=== PATIENT | male | born 1935 | race Caucasian/White ===

== ENCOUNTER 2020-02-27 10:13 | Inpatient (IN) | payer MEDICARE, BC ==
[2020-02-27] MEDS ORDERED: ACETAMINOPHEN TAB 325 MG TAB PO STA (10:38)
[2020-02-27 11:03] LABS: Basophils % (A) 0 %; Eosinophils # (A) 0.1 k/uL (0-0.7); Eosinophils % (A) 2 %; HCT 38.1 % (39.0-53.0); Lymphocytes # (A) 0.8 k/uL (1.0-4.8); Lymphocytes % (A) 10 %; MCH 29.7 pg (25.0-35.0); MCHC 31.4 g/dL (31.0-37.0); MCV 94.6 fL (80.0-100.0); Mean Platelet Volume 8.1; Monocytes # (A) 0.7 k/uL (0-1.0); Monocytes % (A) 8 %; Neutrophils # (A) 6.6 k/uL (1.3-7.7); Neutrophils % (A) 79 %; Platelet Count 188 k/uL (150-450); RBC 4.03 m/uL (4.30-5.90); WBC 8.3 k/uL (3.8-10.6)
[2020-02-27 11:15] LABS: C Reactive Protein 72.7 mg/L (<10.0); Calcium 8.9 mg/dL (8.4-10.2); Potassium 4.5 mmol/L (3.5-5.1); Total Bilirubin 0.9 mg/dL (0.2-1.3); Total Protein 7.2 g/dL (6.3-8.2)
--- NOTE | 2020-02-27 11:18 | XR ---
Left foot HISTORY: Foot swelling 3 views the left foot There are vascular calcifications present. Soft tissue swelling is noted. Degenerative changes presen t at the intertarsal and tibiotalar joints. There is a plantar calcaneal spur. Bone mineralization is reduced. No fracture or dislocation is evident. Degenerative change present at the first metatarsoph alangeal joint. No periostitis to suggest osteomyelitis. IMPRESSION: Correlate for possible diabetes or peripheral vascular occlusive disease, cellulitis. Ost eoarthritis, plantar calcaneal spur.
[2020-02-27] MEDS ORDERED: SODIUM CHLORIDE 0.9% 500 ML 500 ML IV ONE (11:26)
[2020-02-27] MEDS ORDERED: SODIUM CHLORIDE 0.9% 1,000 ML IV ONE (11:27)
--- NOTE | 2020-02-27 11:37 | US ---
EXAMINATION TYPE: US venous doppler duplex LE LT DATE OF EXAM: 02/27/2020 10:38 AM COMPARISON: NONE CLINICAL HISTORY: history of DVT, left foot swelling. Patient is currently taking blood thinners SIDE PERFORMED: Left TECHNIQUE: The lower extremity deep venous system is examined utilizing real time linear array sonog angelo with graded compression, doppler sonography and color-flow sonography. VESSELS IMAGED: External Iliac Vein (EIV) Common Femoral Vein Deep Femoral Vein Greater Saphenous Vein * Femoral Vein Popliteal Vein Small Saphenous Vein * Proximal Calf Veins (* superficial vessels) Within the femoral vein there are some low level internal echoes, the vein is not entirely compressib le Left Leg: Positive for non-occluding DVT mid femoral vein IMPRESSION: Deep venous thrombosis of questionable acuity
--- NOTE | 2020-02-27 11:44 | ED ---
Extremity Problem HPI <JustoHari - Last Filed: 02/27/20 17:07> - General Source: patient Mode of arrival: ambulatory Limitations: no limitations <Sweta Briseno - Last Filed: 02/27/20 19:16> - General Chief complaint: Extremity Problem,Nontraumatic Stated complaint: leg swelling Time Seen by Provider: 02/27/20 10:24 - History of Present Illness Initial comments: 84-year-old male past history of gout presenting today for chief complaint of left foot and ankle pain and swelling and fevers. Patient states that he has history of gout and a few days ago he noticed pain in his great left toe. Danuta ent states that the pain went away after drinking marquis juice. Patient states that returned it seemed to be in his ankle and foot. Patient noted left foot swelling. Patient's was concerned as patient has had DVTs in the past. Patient is currently on coumadin. Patient denies chest pain or shortness of breath, denies cough or URI symptoms. Denies dysuria, urgency and frequency. Patient states the ankle joint was slightly red, he states although the ankle and foot are painful he is able to range and weight bear. Upon arrival patient pleasant appears nontoxic, but is febrile. (Sweta Briseno) - Related Data Home Medications Medication Instructions Recorded Confirmed Simvastatin [Zocor] 40 mg PO HS 07/26/16 02/27/20 Warfarin [Coumadin] 2.5 mg PO SUTH 07/26/16 02/27/20 Warfarin [Coumadin] 5 mg PO MOTUWEFRSA 07/26/16 02/27/20 Ergocalciferol [Vitamin D2 50,000 unit PO FR 09/14/16 02/27/20 (DRISDOL)] Donepezil [Aricept] 10 mg PO HS 02/27/20 02/27/20 Furosemide [Lasix] 40 mg PO DAILY 02/27/20 02/27/20 Pioglitazone [Actos] 15 mg PO DAILY 02/27/20 02/27/20 Potassium Chloride ER [K-Dur 20] 20 meq PO DAILY 02/27/20 02/27/20 Previous Rx's Medication Instructions Recorded metFORMIN HCL 1,000 mg PO BID #60 tab 09/15/16 Allergies Allergy/AdvReac Type Severity Reaction Status Date / Time Penicillins Allergy Rash/Hives Verified 02/27/20 10:22 Review of Systems ROS Other: All systems not noted in ROS Statement are negative. <Hari Kemp - Last Filed: 02/27/20 17:07> ROS Other: All systems not noted in ROS Statement are negative. <Sweta Briseno - Last Filed: 02/27/20 19:16> ROS Statement: Those systems with pertinent positive or pertinent negative responses have been documented in the HPI. Past Medical History Past Medical History: Coronary Artery Disease (CAD), Deep Vein Thrombosis (DVT), Hearing Disorder / Deafness, Hyperlipidemia, Osteoarthritis (OA) Additional Past Medical History / Comment(s): DVT X3-1989,1992,2012", gout History of Any Multi-Drug Resistant Organisms: None Reported Past Surgical History: Joint Replacement, Orthopedic Surgery Additional Past Surgical History / Comment(s): RT SHOULDER AND LT KNEE REPLACEMENT. RT ROTATOR CUFF REPAIR, COLONOSCOPY Past Anesthesia/Blood Transfusion Reactions: No Reported Reaction Past Psychological History: No Psychological Hx Reported Smoking Status: Former smoker Past Alcohol Use History: None Reported Past Drug Use History: None Reported - Past Family History Father History Unknown: Yes Additional Family Medical History / Comment(s): Lived until 88, was in a foster home. <Sweta Briseno - Last Filed: 02/27/20 19:16> General Exam Limitations: no limitations <Sweta Briseno - Last Filed: 02/27/20 19:16> - General Exam Comments Initial Comments: General: The patient is awake and alert, in no distress Eye: +3 mm pupils are equal, round and reactive to light, extra-ocular movements are intact. No nystagmus. There is normal conjunctiva bilaterally. No signs of icterus. Cardiovascular: There is a regular rate and rhythm. No murmur, rub or gallop is appreciated. Respiratory: Lungs are clear to auscultation, respirations are non-labored, breath sounds are equal. No wheezes, stridor, rales, or rhonchi. Gastrointestinal: Soft, non-distended, non-tender abdomen without masses or organomegaly noted. There is no rebound or guarding present. Musculoskeletal: Light redness of left ankle joint, LE edema > left side in com parison to right, swelling mostly in ankle joint. Great toe pain, no significant swelling. Normal ROM, moderate tenderness. Strength 5/5. Sensation intact. Radial pulses equal bilaterally 2+. Neurological: A&O x 3. CN II-XII intact grossly, There are no obvious motor or sensory deficits. Coordination appears grossly intact. Speech is normal. Skin: Skin is warm and dry and no rashes or lesions are noted. Psychiatric: Cooperative, appropriate mood & affect, normal judgment. (Sweta Briseno) Course Vital Signs 02/27/20 02/27/20 02/27/20 10:14 12:04 13:00 Temperature 100.4 F H Pulse Rate 75 71 71 Respiratory 18 20 20 Rate Blood Pressure 135/83 136/77 O2 Sat by Pulse 97 98 98 Oximetry 02/27/20 02/27/20 02/27/20 14:00 15:26 15:45 Temperature Pulse Rate 73 76 Respiratory 20 18 Rate Blood Pressure 143/87 152/82 O2 Sat by Pulse 98 98 98 Oximetry 02/27/20 17:46 Temperature Pulse Rate 689 H Respiratory 18 Rate Blood Pressure 153/93 O2 Sat by Pulse 96 Oximetry Medical Decision Making - Lab Data Result diagrams: 02/27/20 10:52 02/27/20 10:52 <Hari Kemp - Last Filed: 02/27/20 17:07> - Lab Data Result diagrams: 02/27/20 10:52 02/27/20 10:52 <Sweta Briseno - Last Filed: 02/27/20 19:16> - Medical Decision Making Placement order placed for Dr. Weiss (Hari Kemp) 84-year-old male presents today for chief complaint of left foot and ankle pain swelling fever. Patient's history of gout. Concerning for possible septic joint of the patient was ranging ankle quite well and able to weight-bear x-ray revealed no signs of osteomyelitis. No leukocytosis. Patient blood cultures pending, no other localized symptoms. Patient ankle joint aspirated and evaluated by investigations director orthopedic surgeon Dr. Short who feel this is most likely a gouty exacerbation. US revealed a DVT of uncertain acuity and thus since patient is therapeutic on his coumadin patient was admitted for failed outpatient treatment of DVT. Patient is not tachycardic, denies chest pain or SOB at this time. Patient case accepted by Dr. Sánchez. Dr. Weiss is agreeable to this care plan and admission (Sweta Briseno) - Lab Data Lab Results 02/27/20 02/27/20 02/27/20 Range/Units 10:52 10:52 10:52 WBC 8.3 (3.8-10.6) k/uL RBC 4.03 L (4.30-5.90) m/uL Hgb 12.0 L (13.0-17.5) gm/dL Hct 38.1 L (39.0-53.0) % MCV 94.6 (80.0-100.0) fL MCH 29.7 (25.0-35.0) pg MCHC 31.4 (31.0-37.0) g/dL RDW 14.0 (11.5-15.5) % Plt Count 188 (150-450) k/uL Neutrophils % 79 % Lymphocytes % 10 % Monocytes % 8 % Eosinophils % 2 % Basophils % 0 % Neutrophils # 6.6 (1.3-7.7) k/uL Lymphocytes # 0.8 L (1.0-4.8) k/uL Monocytes # 0.7 (0-1.0) k/uL Eosinophils # 0.1 (0-0.7) k/uL Basophils # 0.0 (0-0.2) k/uL ESR 62 H (0-15) mm/hr PT (9.0-12.0) sec INR (<1.2) APTT (22.0-30.0) sec Sodium 138 (137-145) mmol/L Potassium 4.5 (3.5-5.1) mmol/L Chloride 103 (98-107) mmol/L Carbon Dioxide 25 (22-30) mmol/L Anion Gap 10 mmol/L BUN 25 H (9-20) mg/dL Creatinine 1.45 H (0.66-1.25) mg/dL Est GFR (CKD-EPI)AfAm 50 (>60 ml/min/1.73 sqM) Est GFR (CKD-EPI)NonAf 44 (>60 ml/min/1.73 sqM) Glucose 152 H (74-99) mg/dL Lactic Ac Sepsis Rflx Plasma Lactic Acid Pedro Luis 2.1 H* (0.7-2.0) mmol/L Calcium 8.9 (8.4-10.2) mg/dL Total Bilirubin 0.9 (0.2-1.3) mg/dL AST 23 (17-59) U/L ALT 13 (4-49) U/L Alkaline Phosphatase 33 L (38-126) U/L C-Reactive Protein 72.7 H (<10.0) mg/L Total Protein 7.2 (6.3-8.2) g/dL Albumin 4.0 (3.5-5.0) g/dL Fluid Source Fluid Color Fluid Appearance Fluid RBC /uL Fluid Nucleated Cells /uL Fluid Polynuclear WBCs % Fluid Mononuclear WBCs % 02/27/20 02/27/20 02/27/20 Range/Units 10:52 11:19 13:30 WBC (3.8-10.6) k/uL RBC (4.30-5.90) m/uL Hgb (13.0-17.5) gm/dL Hct (39.0-53.0) % MCV (80.0-100.0) fL MCH (25.0-35.0) pg MCHC (31.0-37.0) g/dL RDW (11.5-15.5) % Plt Count (150-450) k/uL Neutrophils % % Lymphocytes % % Monocytes % % Eosinophils % % Basophils % % Neutrophils # (1.3-7.7) k/uL Lymphocytes # (1.0-4.8) k/uL Monocytes # (0-1.0) k/uL Eosinophils # (0-0.7) k/uL Basophils # (0-0.2) k/uL ESR (0-15) mm/hr PT 29.0 H (9.0-12.0) sec INR 3.0 H (<1.2) APTT 43.6 H (22.0-30.0) sec Sodium (137-145) mmol/L Potassium (3.5-5.1) mmol/L Chloride (98-107) mmol/L Carbon Dioxide (22-30) mmol/L Anion Gap mmol/L BUN (9-20) mg/dL Creatinine (0.66-1.25) mg/dL Est GFR (CKD-EPI)AfAm (>60 ml/min/1.73 sqM) Est GFR (CKD-EPI)NonAf (>60 ml/min/1.73 sqM) Glucose (74-99) mg/dL Lactic Ac Sepsis Rflx Y Plasma Lactic Acid Pedro Luis (0.7-2.0) mmol/L Calcium (8.4-10.2) mg/dL Total Bilirubin (0.2-1.3) mg/dL AST (17-59) U/L ALT (4-49) U/L Alkaline Phosphatase (38-126) U/L C-Reactive Protein (<10.0) mg/L Total Protein (6.3-8.2) g/dL Albumin (3.5-5.0) g/dL Fluid Source Synovial Fluid Color Yellow Fluid Appearance Cloudy Fluid RBC 19792 /uL Fluid Nucleated Cells 7000 /uL Fluid Polynuclear WBCs 71 % Fluid Mononuclear WBCs 29 % 05/25/20 Range/Units 15:48 WBC (3.8-10.6) k/uL RBC (4.30-5.90) m/uL Hgb (13.0-17.5) gm/dL Hct (39.0-53.0) % MCV (80.0-100.0) fL MCH (25.0-35.0) pg MCHC (31.0-37.0) g/dL RDW (11.5-15.5) % Plt Count (150-450) k/uL Neutrophils % % Lymphocytes % % Monocytes % % Eosinophils % % Basophils % % Neutrophils # (1.3-7.7) k/uL Lymphocytes # (1.0-4.8) k/uL Monocytes # (0-1.0) k/uL Eosinophils # (0-0.7) k/uL Basophils # (0-0.2) k/uL ESR (0-15) mm/hr PT (9.0-12.0) sec INR (<1.2) APTT (22.0-30.0) sec Sodium (137-145) mmol/L Potassium (3.5-5.1) mmol/L Chloride (98-107) mmol/L Carbon Dioxide (22-30) mmol/L Anion Gap mmol/L BUN (9-20) mg/dL Creatinine (0.66-1.25) mg/dL Est GFR (CKD-EPI)AfAm (>60 ml/min/1.73 sqM) Est GFR (CKD-EPI)NonAf (>60 ml/min/1.73 sqM) Glucose (74-99) mg/dL Lactic Ac Sepsis Rflx Plasma Lactic Acid Pedro Luis 1.2 (0.7-2.0) mmol/L Calcium (8.4-10.2) mg/dL Total Bilirubin (0.2-1.3) mg/dL AST (17-59) U/L ALT (4-49) U/L Alkaline Phosphatase (38-126) U/L C-Reactive Protein (<10.0) mg/L Total Protein (6.3-8.2) g/dL Albumin (3.5-5.0) g/dL Fluid Source Fluid Color Fluid Appearance Fluid RBC /uL Fluid Nucleated Cells /uL Fluid Polynuclear WBCs % Fluid Mononuclear WBCs % Disposition <Hari Kemp - Last Filed: 02/27/20 17:07> Is patient prescribed a controlled substance at d/c from ED?: No Time of Disposition: 13:42 Decision to Admit Reason: Admit from EC Decision Date: 02/27/20 Decision Time: 13:42 <Sweta Briseno - Last Filed: 02/27/20 19:16> Clinical Impression: Left leg swelling, Left ankle swelling, Fever, DVT (deep venous thrombosis) Disposition: ADMITTED IP TO THIS HOSP Condition: Stable
--- NOTE | 2020-02-27 11:46 | XR ---
Left ankle HISTORY: Swelling, erythema 3 views of the left ankle There is soft tissue swelling present. Ossific densities along the medial malleolus are well-corticat ed and not felt likely to be acute. Soft tissue calcifications at the distal leg may be due to chroni c venous stasis disease, arterial calcifications may be present. Alignment and ankle mortise are main tained, bone mineralization is within normal limits. There is a plantar spur. Joint space loss is pre sent at the tibiotalar joint. IMPRESSION: Correlate for cellulitis, chronic venous stasis disease. Osteoarthritis. Plantar spur..
[2020-02-27] MEDS: SODIUM CHLORIDE 0.9% 1,000 ML IV SCH (11:52)
[2020-02-27] MEDS ORDERED: VANCOMYCIN IV PER PHARMACY 1 EACH MISC MISCELLANE PRN (11:54)
[2020-02-27] MEDS ORDERED: VANCOMYCIN 2,000 MG in SODIUM CHLORIDE 0.9% 500 ML 500 ML IVPB STA (11:59)
[2020-02-27 12:14] LABS: Partial Thromboplastin Time 43.6 sec (22.0-30.0)
[2020-02-27 12:23] LABS: Erythrocyte Sedimentation Rate 62 mm/hr (0-15)
[2020-02-27] MEDS ORDERED: LIDOCAINE 1% INJ 10MG/ML (20 ML MDV) SQ ONE (12:38)
[2020-02-27] MEDS ORDERED: HEPARIN SODIUM,PORCINE 5,000 UNIT/ML 1 ML VIAL IV PRN (13:40)
[2020-02-27] MEDS ORDERED: HEPARIN SODIUM,PORCINE 5,000 UNIT/ML 1 ML VIAL IV ONE (13:40)
[2020-02-27] MEDS ORDERED: NALOXONE 0.4 MG/ML 1 ML VIAL IV PRN (13:40)
[2020-02-27] MEDS ORDERED: predniSONE 50 MG TAB PO STA (13:42)
[2020-02-27] MEDS ORDERED: HEPARIN SOD,PORK IN 0.45% NACL 25,000 UNIT in 0.45% NACL 1 250ML.BAG IV SCH (13:45)
--- NOTE | 2020-02-27 14:03 | P.CNOR ---
History of Present Illness - [facility] Consult date: 02/27/20 History of present illness: The patient is an 84-year-old male with multiple medical problems who presents to the ER with swelling and pain throughout his left ankle and foot. He has a history of gout and states that initially his left big toe felt like prior flareups of gout, but then he had swelling and pain that migrated proximally into his ankle and calf. At the time of my evaluation the patient denies feeling systemically sick and is complaining of isolated pain in his left ankle. He states that it hurts, but he would be able to walk. He has no other complaints at this time. Past Medical History Past Medical History: Coronary Artery Disease (CAD), Deep Vein Thrombosis (DVT), Hearing Disorder / Deafness, Hyperlipidemia, Osteoarthritis (OA) Additional Past Medical History / Comment(s): DVT X3-1989,1992,2012", gout History of Any Multi-Drug Resistant Organisms: None Reported Past Surgical History: Joint Replacement, Orthopedic Surgery Additional Past Surgical History / Comment(s): RT SHOULDER AND LT KNEE REPLACEMENT. RT ROTATOR CUFF REPAIR, COLONOSCOPY Past Anesthesia/Blood Transfusion Reactions: No Reported Reaction Past Psychological History: No Psychological Hx Reported Smoking Status: Former smoker Past Alcohol Use History: None Reported Past Drug Use History: None Reported - Past Family History Father History Unknown: Yes Additional Family Medical History / Comment(s): Lived until 89, was in a foster home. Medications and Allergies Home Medications Medication Instructions Recorded Confirmed Type Furosemide [Lasix] 20 mg PO DAILY 07/26/16 09/14/16 History Simvastatin [Zocor] 40 mg PO HS 07/26/16 09/14/16 History Warfarin [Coumadin] 2.5 mg PO SUTUTHSA 07/26/16 09/14/16 History Warfarin [Coumadin] 5 mg PO MOWEFR 07/26/16 09/14/16 History Ergocalciferol [Vitamin D2 50,000 unit PO Q14D 09/14/16 09/14/16 History (DRISDOL)] Potassium 99 mg PO DAILY 09/14/16 09/14/16 History Pioglitazone [Actos] 30 mg PO DAILY #30 tab 09/15/16 Rx metFORMIN HCL 1,000 mg PO BID #60 tab 09/15/16 Rx Allergies Allergy/AdvReac Type Severity Reaction Status Date / Time Penicillins Allergy Rash/Hives Verified 02/27/20 10:22 Physical Examination On exam the patient is resting comfortably on the ER [place]. He is alert and easily able to answer questions. A focused exam of the left leg was conducted. On inspection there is diffuse swelling throughout the calf, ankle, and foot. There is mild erythema but no cesia warmth. There are no open wounds or areas of subcutaneous crepitance. He has a moderate ankle effusion. He has pain with passive range of motion of the ankle. Results - Labs Labs: Abnormal Lab Results - Last 24 Hours (Table) 02/27/20 02/27/20 02/27/20 Range/Units 10:52 10:52 10:52 RBC 4.03 L (4.30-5.90) m/uL Hgb 12.0 L (13.0-17.5) gm/dL Hct 38.1 L (39.0-53.0) % Lymphocytes # 0.8 L (1.0-4.8) k/uL ESR 62 H (0-15) mm/hr PT (9.0-12.0) sec INR (<1.2) APTT (22.0-30.0) sec BUN 25 H (9-20) mg/dL Creatinine 1.45 H (0.66-1.25) mg/dL Glucose 152 H (74-99) mg/dL Plasma Lactic Acid Pedro Luis 2.1 H* (0.7-2.0) mmol/L Alkaline Phosphatase 33 L (38-126) U/L C-Reactive Protein 72.7 H (<10.0) mg/L 02/27/20 Range/Units 10:52 RBC (4.30-5.90) m/uL Hgb (13.0-17.5) gm/dL Hct (39.0-53.0) % Lymphocytes # (1.0-4.8) k/uL ESR (0-15) mm/hr PT 29.0 H (9.0-12.0) sec INR 3.0 H (<1.2) APTT 43.6 H (22.0-30.0) sec BUN (9-20) mg/dL Creatinine (0.66-1.25) mg/dL Glucose (74-99) mg/dL Plasma Lactic Acid Pedro Luis (0.7-2.0) mmol/L Alkaline Phosphatase (38-126) U/L C-Reactive Protein (<10.0) mg/L H & H 02/27/20 Range/Units 10:52 Hgb 12.0 L (13.0-17.5) gm/dL Hct 38.1 L (39.0-53.0) % Coagulation 02/27/20 Range/Units 10:52 INR 3.0 H (<1.2) Result Diagrams: 02/27/20 10:52 02/27/20 10:52 Assessment and Plan (1) Left ankle swelling Current Visit: Yes Status: Acute Code(s): M25.472 - EFFUSION, LEFT ANKLE SNOMED Code(s): 629332578 Plan: The patient has relatively acute onset left ankle pain and swelling. His exam is more consistent with crystalline arthropathy then septic arthritis. I aspirated the left ankle and was able to withdraw 3 mL's of clear, blood-tinged fluid. There was no cesia purulence. The fluid was sent for crystals, cell count, Gram stain, and culture. Final disposition was deferred to ER. The patient is going to be admitted to internal medicine. We will follow his cultures peripherally and if his condition worsens are happy to reevaluate his left ankle. Time with Patient: Greater than 30
[2020-02-27 14:52] LABS: Color,BF Yellow; Nucleated Cells, Body Fluid 7000 /uL; RBC, Body Fluid 19500 /uL
[2020-02-27 14:53] LABS: Appearance,BF Cloudy
[2020-02-27 14:55] LABS: Mononuclear WBC,Body Fluid 29 %; Polynuclear WBC,Body Fluid 71 %; Total Cells Counted,Body Fluid 100
[2020-02-27] MEDS ORDERED: HYDROmorphone 0.5 MG/0.5 ML SYRINGE IVP PRN (18:21)
[2020-02-27] MEDS ORDERED: ALPRAZolam 0.25 MG TAB PO PRN (18:21)
[2020-02-27] MEDS ORDERED: HYDROcodone/APAP 5-325MG 1 EACH TAB PO PRN (18:21)
--- NOTE | 2020-02-27 20:57 | HP ---
HISTORY AND PHYSICAL DATE OF SERVICE: 02/27/2020 CHIEF COMPLAINTS: Pain and swelling of the left foot and as well as DVT. HISTORY OF PRESENT ILLNESS: This 84-year-old gentleman with a past medical history of multiple medical problems including history of CAD, history of DVT, history of hyperlipidemia, DJD, history of 3 times DVT in 1989, 1992 and 2012, and gout also being followed by Dr. Jacobson in the outpatient setting was not feeling well over the past couple weeks. The patient is having pain in the left foot and subsequently patient developed swelling of the left ankle. The patient came to [facility] and was admitted for further evaluation and treatment. Dr. Short saw the patient in the ER itself and aspirated blood- tinged fluid about 3 mL and was sent for investigations including crystals. Patient also had an venous Doppler on the left foot and a mid femoral recurrent DVT could not be excluded. Moreover, the INR was found to be 3 at this time. Creatinine is 1.45. There is no history of fever, rigors or chills. No history of headache, loss of consciousness, seizures at this time. Patient also had extensive shortness of breath. PAST MEDICAL HISTORY: History of DVT, history of CAD, hearing defect, deafness, hyperlipidemia, history of DJD. MEDICATIONS: Prior to admission home medications are: 1. Metformin 1000 mg p.o. b.i.d. 2. K-Dur 20 mEq p.o. daily. 3. Actos 15 mg p.o. daily. 4. Aricept 10 mg q.h.s. 5. Zocor 40 mg q.h.s. 6. Lasix 40 mg p.o. daily. 7. Drisdol [id number] p.o. Thursday. 8. Coumadin 2.5 mg and 5 mg Thursday, Thursday, Thursday, Thursday, Thursday. ALLERGIES: PENICILLIN. FAMILY HISTORY: No history of heart disease or strokes in the family. SOCIAL HISTORY: Previous history of smoking. No history of alcohol intake. REVIEW OF SYSTEMS: ENT diminished vision. Diminished hearing. Cardiovascular: No angina. Respiration: No cough or hemoptysis. GI: No nausea, diarrhea. no dysuria. Nervous system: No numbness or weakness. ALLERGY/IMMUNOLOGY: No asthma or hayfever. MUSCULOSKELETAL as mentioned. Hematology/Oncology: No history of anemia. ENDOCRINE: History of diabetes. No hypothyroidism. Constitutional: As mentioned earlier. Dermatology negative. Rheumatology negative. Psychiatric as mentioned earlier. PHYSICAL EXAMINATION: Alert and oriented times three. Pulse 70. Blood pressure is 152/80, respiration 18, temp is normal. Pulse ox 98% on room air. HEENT is conjunctivae normal. Oral mucosa moist. NECK is no jugular venous distention. No carotid bruit. No lymph node enlargement. Cardiovascular system: S1, S2 muffled. No S3, no S4. Respiratory: Breath sounds diminished in the bases. A few scattered rhonchi. Bilateral scattered rhonchi and crackles. ABDOMEN: Soft. Obese. Ventral hernia present. LEGS: Significant pain and swelling of the left ankle and left foot present, tender and dilated veins also present. NERVOUS SYSTEM: Higher functions as mentioned earlier. Moves all 4 limbs. No focal motor or sensory deficits. LYMPHATICS: No lymph nodes palpable in the neck, axillae or groin. SKIN: As mentioned earlier. JOINTS as mentioned earlier. LAB STUDIES: WBC 8, hemoglobin 12. INR is 3 and BUN is 1.45. Lactic acid 2.1. Alkaline phosphatase is 33. C-reactive protein 72.7. ASSESSMENT: 1. Acute left ankle arthropathy, swelling, possible acute gouty arthritis, rule out septic arthritis. 2. Acute deep vein thrombosis, possible recurrent deep vein thrombosis of the left thigh. 3. Consider Coumadin failure. 4. Increased creatinine with chronic kidney disease stage III. 5. Elevated plasma lactic acid. 6. Increased CRP. 7. Anemia, normocytic anemia of chronic disease. 8. Coumadin monitoring. 9. History of coronary artery disease. 10.History of deep vein thrombosis. 11.History of deafness. 12.Hyperlipidemia. 13.History of degenerative joint disease. 14.History of remote nicotine dependence. 15.Obesity with body mass index of 37.7. 16.FULL CODE. RECOMMENDATIONS AND DISCUSSION: This 84-year-old gentleman who presented with multiple complex medical issues, we will monitor the patient closely, continue the current medications, symptomatic treatment. Otherwise, at this time, I recommend colchicine. I would also recommend a small dose of steroids. Otherwise hematology oncology evaluation regarding the evaluation for the Coumadin failure. Resume the home medications. The prognosis guarded because of multiple complex medical issues. We will closely follow with Orthopedic surgery. Await culture reports and as well as crystal analysis. Otherwise, prognosis guarded. Further recommendations to follow. A copy of this dictation being forwarded to Dr. Jacobson who is the primary care physician. MMYANELISL / IJN: [id number] /
[2020-02-27] MEDS: COLCHICINE 0.6 MG EACH PO SCH ×2 (21:02→21:42)
[2020-02-27] MEDS: DONEPEZIL 10 MG TAB PO SCH (21:02)
[2020-02-27] MEDS: ATORVASTATIN 20 MG TAB PO SCH (21:02)
[2020-02-27] MEDS: methylPREDNISolone SOD SUCCI 40 MG/ML 1 ML VIAL IV SCH (21:09)
[2020-02-27 22:18] LABS: Appearance,Urine Clear (Clear); Bilirubin,Urine Negative (Negative); Blood,Urine Negative (Negative); Color,Urine Yellow; Glucose,Urine (UA) Negative (Negative); Ketones,Urine Negative (Negative); Leukocyte Esterase,Urine Negative (Negative); Nitrite,Urine Negative (Negative); PH, Urine 5.5 (5.0-8.0); Protein,Urine Negative (Negative); Specific Gravity,Urine 1.014 (1.001-1.035); Urobilinogen,Urine <2.0 mg/dL (<2.0)
[2020-02-28] MEDS: methylPREDNISolone SOD SUCCI 40 MG/ML 1 ML VIAL IV SCH ×5 (00:58→22:00)
[2020-02-28] MEDS: SODIUM CHLORIDE 0.9% 1,000 ML IV SCH ×2 (01:08→05:13)
[2020-02-28] MEDS: PANTOPRAZOLE 40 MG TABLET PO SCH (07:47)
[2020-02-28] MEDS: metFORMIN 500 MG TAB PO SCH ×2 (07:47→16:38)
[2020-02-28] MEDS: FUROSEMIDE 40 MG TAB PO SCH (07:47)
[2020-02-28] MEDS: POTASSIUM CHLORIDE ER 20 MEQ TAB.ER PO SCH (07:47)
[2020-02-28] MEDS: VANCOMYCIN 2,000 MG in SODIUM CHLORIDE 0.9% 500 ML 500 ML IVPB SCH (07:48)
[2020-02-28] MEDS: PIOGLITAZONE 15 MG TAB PO SCH (07:57)
[2020-02-28] MEDS: COLCHICINE 0.6 MG EACH PO SCH ×2 (07:57→23:20)
[2020-02-28 07:58] LABS: Basophils % (A) 0 %; Eosinophils % (A) 0 %; HCT 38.9 % (39.0-53.0); HGB 12.6 gm/dL (13.0-17.5); Hypochromasia Slight; Lymphocytes # (A) 0.7 k/uL (1.0-4.8); Lymphocytes % (A) 12 %; MCH 31.1 pg (25.0-35.0); MCHC 32.5 g/dL (31.0-37.0); MCV 95.6 fL (80.0-100.0); Mean Platelet Volume 8.2; Monocytes # (A) 0.1 k/uL (0-1.0); Monocytes % (A) 2 %; Neutrophils # (A) 4.9 k/uL (1.3-7.7); Neutrophils % (A) 85 %; Platelet Count 179 k/uL (150-450); RBC 4.07 m/uL (4.30-5.90); RDW 13.9 % (11.5-15.5); WBC 5.8 k/uL (3.8-10.6)
[2020-02-28 08:20] LABS: INR 3.3 (<1.2); Prothrombin Time 31.9 sec (9.0-12.0)
--- NOTE | 2020-02-28 08:59 | P.PN ---
Subjective Progress Note Date: 02/28/20 The patient's left leg and ankle swelling is improved today as is his pain. He has no complaints. He says he is been able to put more weight on his leg without pain. Objective - Vital Signs Vital signs: Vital Signs Temp 97.5 F L 02/28/20 07:00 Pulse 61 02/28/20 07:00 Resp 17 02/28/20 07:00 BP 146/83 02/28/20 07:00 Pulse Ox 93 L 02/28/20 07:00 Intake & Output 02/27/20 02/28/20 02/28/20 18:59 06:59 18:59 Intake Total 60.536 Output Total 700 Balance -639.464 Weight 122.47 kg Intake: Intake, IV Titration 60.536 Amount Heparin Sod,Pork in 0.45% 60.536 NaCl 25,000 unit In 0.45 % NaCl 1 250ml.bag @ 8.17 UNITS/KG/HR 10.006 mls/ hr IV .Q24H MAUREEN Rx#: [id number] Output: Urine 700 Other: # Voids 1 - Exam There is mild swelling throughout the left ankle and foot. There is minimal erythema and no warmth to touch. He has minimal discomfort with passive range of motion of the ankle. - Labs CBC & Chem 7: 02/28/20 07:20 02/27/20 10:52 Labs: Abnormal Lab Results - Last 24 Hours (Table) 02/27/20 02/27/20 02/27/20 Range/Units 10:52 10:52 10:52 RBC 4.03 L (4.30-5.90) m/uL Hgb 12.0 L (13.0-17.5) gm/dL Hct 38.1 L (39.0-53.0) % Lymphocytes # 0.8 L (1.0-4.8) k/uL ESR 62 H (0-15) mm/hr PT (9.0-12.0) sec INR (<1.2) APTT (22.0-30.0) sec BUN 25 H (9-20) mg/dL Creatinine 1.45 H (0.66-1.25) mg/dL Glucose 152 H (74-99) mg/dL Plasma Lactic Acid Pedro Luis 2.1 H* (0.7-2.0) mmol/L Uric Acid (3.5-8.5) mg/dL Alkaline Phosphatase 33 L (38-126) U/L C-Reactive Protein 72.7 H (<10.0) mg/L 02/27/20 02/27/20 02/27/20 Range/Units 10:52 19:44 19:44 RBC (4.30-5.90) m/uL Hgb (13.0-17.5) gm/dL Hct (39.0-53.0) % Lymphocytes # (1.0-4.8) k/uL ESR (0-15) mm/hr PT 29.0 H (9.0-12.0) sec INR 3.0 H (<1.2) APTT 43.6 H 63.1 H (22.0-30.0) sec BUN (9-20) mg/dL Creatinine (0.66-1.25) mg/dL Glucose (74-99) mg/dL Plasma Lactic Acid Pedro Luis (0.7-2.0) mmol/L Uric Acid 9.1 H (3.5-8.5) mg/dL Alkaline Phosphatase (38-126) U/L C-Reactive Protein (<10.0) mg/L 02/28/20 02/28/20 Range/Units 07:20 07:20 RBC 4.07 L (4.30-5.90) m/uL Hgb 12.6 L (13.0-17.5) gm/dL Hct 38.9 L (39.0-53.0) % Lymphocytes # 0.7 L (1.0-4.8) k/uL ESR (0-15) mm/hr PT 31.9 H (9.0-12.0) sec INR 3.3 H (<1.2) APTT (22.0-30.0) sec BUN (9-20) mg/dL Creatinine (0.66-1.25) mg/dL Glucose (74-99) mg/dL Plasma Lactic Acid Pedro Luis (0.7-2.0) mmol/L Uric Acid (3.5-8.5) mg/dL Alkaline Phosphatase (38-126) U/L C-Reactive Protein (<10.0) mg/L Microbiology - Last 24 Hours (Table) 02/27/20 13:30 Gram Stain - Preliminary Knee - Left Body Fluid Culture - Preliminary Assessment and Plan (1) Left ankle swelling Current Visit: Yes Status: Acute Code(s): M25.472 - EFFUSION, LEFT ANKLE SNOMED Code(s): 671292273 Plan: The patient seems improved this morning and his ankle aspiration is relatively benign. I recommend physical therapy for gait training and local modalities for his ankle. We will follow his cultures peripherally and if his condition changes would be happy to reevaluate his ankle, otherwise we will sign off at this time.
[2020-02-28] MEDS ORDERED: HEPARIN SODIUM,PORCINE 10,000 UNIT/ML 1 ML VIAL IV ONE (12:03)
[2020-02-28] MEDS ORDERED: HEPARIN SODIUM,PORCINE 5,000 UNIT/ML 1 ML VIAL IV PRN (12:03)
[2020-02-28 12:52] LABS: Basophils % (A) 0 %; Eosinophils % (A) 0 %; HCT 36.9 % (39.0-53.0); HGB 12.2 gm/dL (13.0-17.5); Lymphocytes # (A) 0.7 k/uL (1.0-4.8); Lymphocytes % (A) 8 %; MCH 31.5 pg (25.0-35.0); MCV 95.3 fL (80.0-100.0); Mean Platelet Volume 8.1; Monocytes # (A) 0.3 k/uL (0-1.0); Monocytes % (A) 4 %; Neutrophils # (A) 7.7 k/uL (1.3-7.7); Neutrophils % (A) 88 %; Platelet Count 181 k/uL (150-450); RBC 3.87 m/uL (4.30-5.90); RDW 13.9 % (11.5-15.5); WBC 8.8 k/uL (3.8-10.6)
[2020-02-28 12:57] LABS: INR 3.3 (<1.2); Partial Thromboplastin Time 48.4 sec (22.0-30.0); Prothrombin Time 32.5 sec (9.0-12.0)
[2020-02-28] MEDS: HEPARIN SOD,PORK IN 0.45% NACL 25,000 UNIT in 0.45% NACL 1 250ML.BAG IV SCH (13:16)
--- NOTE | 2020-02-28 16:24 | P.CONS ---
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 He apparently had an unprovoked clot in the RLE in 1990. He was on anticoagulation for 6 mths, and then on an ASA. He developed a new clot in the LLE after a minor laceration, in 1992, and was on coumadin since. In the last week of 01/15, he developed marked discomfort in the back of his rt knee. He had a doppler on 01/31, revealing extensive thrombus from the superficial femoral to the popliteal. His INR was therapeutic. The case was discussed with Dr Urbina and this was felt to be a coumadin failure. He was switched to Xarelto.A hypercoagulable w/u and malignancy w/u were ordered, Which were negative, other than double heterozygous MTHFR gene mutation. This is not considered a hypercoagulable condition any longer. It was not clear if the right-sided clot was new or old. Age could not be determined. We had no prior Dopplers to compare. However based on new symptoms it was felt reasonable to resume that this could be new, and thus represent Coumadin failure. It was therefore recommended that the patient continue on xarelto. The patient did not follow-up in the office after 03/17. According to the history provided by the patient during this consult, he stated that he took Xarelto only for a few months and then had to stop it because of coverage issues. He went back on Coumadin and has continued on it since. He reports fairly infrequent need for dose adjustment with most recent outpatient INR in early 02/21 in the therapeutic range. The patient was admitted to the hospital because of left foot and ankle pain. He stated that he initially developed symptoms a few days ago. Initial symptoms were very typical of exacerbation of his known gout. The patient states that these subsided after about 2-3 days. He then developed recurrent pain and swelling in in the same area but the character of this pain was quite different from his gout pain. He therefore came into the hospital, where Dopplers noted nonocclusive clot in the left femoral vein. Age could not be determined. INR was 3. The patient was started on IV heparin, and consult placed for further evaluation and recommendations. He also had fluid aspiration from the ankle by orthopedic surgery. Review of Systems Constitutional: Denies chills, Denies fever Eyes: denies blurred vision, denies pain Ears: deny: decreased hearing, ear discharge, earache, tinnitus Ears, nose, mouth and throat: Denies headache, Denies sore throat Cardiovascular: Denies chest pain, Denies shortness of breath Respiratory: Denies cough Gastrointestinal: Denies abdominal pain, Denies diarrhea, Denies nausea, Denies vomiting Genitourinary: Reports nocturia, Reports urinary frequency, Reports urinary hesitancy Musculoskeletal: Reports as per HPI, Reports hot joints, Reports shooting leg pain Musculoskeletal: left: ankle pain, ankle swelling Integumentary: Denies pruritus, Denies rash Neurological: Denies numbness, Denies weakness Psychiatric: Denies anxiety, Denies depression Endocrine: Denies fatigue, Denies weight change Hematologic/Lymphatic: Reports as per HPI, Reports thrombophilia Past Medical History Past Medical History: Coronary Artery Disease (CAD), Deep Vein Thrombosis (DVT), Hearing Disorder / Deafness, Hyperlipidemia, Osteoarthritis (OA) Additional Past Medical History / Comment(s): DVT X3-1989,1992,2012", gout History of Any Multi-Drug Resistant Organisms: None Reported Past Surgical History: Joint Replacement, Orthopedic Surgery Additional Past Surgical History / Comment(s): RT SHOULDER AND LT KNEE REPLACEMENT. RT ROTATOR CUFF REPAIR, COLONOSCOPY Past Anesthesia/Blood Transfusion Reactions: No Reported Reaction Past Psychological History: No Psychological Hx Reported Smoking Status: Former smoker Past Alcohol Use History: None Reported Past Drug Use History: None Reported - Past Family History Father History Unknown: Yes Additional Family Medical History / Comment(s): Lived until , was in a foster home. Medications and Allergies Home Medications Medication Instructions Recorded Confirmed Type Simvastatin [Zocor] 40 mg PO HS 07/26/16 02/27/20 History Warfarin [Coumadin] 2.5 mg PO SUTH 07/26/16 02/27/20 History Warfarin [Coumadin] 5 mg PO MOTUWEFRSA 07/26/16 02/27/20 History Ergocalciferol [Vitamin D2 50,000 unit PO FR 09/14/16 02/27/20 History (DRISDOL)] metFORMIN HCL 1,000 mg PO BID #60 tab 09/15/16 02/27/20 Rx Donepezil [Aricept] 10 mg PO HS 02/27/20 02/27/20 History Furosemide [Lasix] 40 mg PO DAILY 02/27/20 02/27/20 History Pioglitazone [Actos] 15 mg PO DAILY 02/27/20 02/27/20 History Potassium Chloride ER [K-Dur 20] 20 meq PO DAILY 02/27/20 02/27/20 History Allergies Allergy/AdvReac Type Severity Reaction Status Date / Time Penicillins Allergy Rash/Hives Verified 02/27/20 10:22 Physical Exam Vitals: Vital Signs Temp Pulse Pulse Resp BP BP Pulse Ox 02/28/20 07:45 17 02/28/20 07:00 97.5 F L 61 17 146/83 93 L 02/27/20 23:00 97.4 F L 54 L 20 130/86 97 02/27/20 20:00 98.4 F 74 18 151/99 95 02/27/20 17:46 689 H 18 153/93 96 Intake and Output 02/28/20 02/28/20 02/28/20 06:59 14:59 22:59 Other: # Voids 1 - Constitutional General appearance: no acute distress - EENT Eyes: EOMI, PERRLA ENT: normal oropharynx - Neck Neck: no lymphadenopathy Thyroid: bilateral: normal size - Respiratory Respiratory: bilateral: CTA - Cardiovascular Rhythm: regular Heart sounds: normal: S1, S2 - Gastrointestinal General gastrointestinal: normal bowel sounds, soft - Integumentary Integumentary: normal - Neurologic Neurologic: CNII-XII intact - Musculoskeletal Swelling of left ankle and foot with mildly decreased range of motion left ankle Musculoskeletal: generalized weakness, strength equal bilaterally - Psychiatric Psychiatric: A&O x's 3, appropriate affect Results CBC & Chem 7: 02/28/20 12:27 02/27/20 10:52 Labs: Abnormal Lab Results - Last 24 Hours (Table) 02/27/20 02/27/20 02/27/20 Range/Units 13:30 19:44 19:44 RBC (4.30-5.90) m/uL Hgb (13.0-17.5) gm/dL Hct (39.0-53.0) % Lymphocytes # (1.0-4.8) k/uL PT (9.0-12.0) sec INR (<1.2) APTT 63.1 H (22.0-30.0) sec Uric Acid 9.1 H (3.5-8.5) mg/dL Synovial Crystals Seen H (None Seen) 02/28/20 02/28/20 02/28/20 Range/Units 07:20 07:20 12:27 RBC 4.07 L 3.87 L (4.30-5.90) m/uL Hgb 12.6 L 12.2 L (13.0-17.5) gm/dL Hct 38.9 L 36.9 L (39.0-53.0) % Lymphocytes # 0.7 L 0.7 L (1.0-4.8) k/uL PT 31.9 H (9.0-12.0) sec INR 3.3 H (<1.2) APTT (22.0-30.0) sec Uric Acid (3.5-8.5) mg/dL Synovial Crystals (None Seen) 02/28/20 Range/Units 12:27 RBC (4.30-5.90) m/uL Hgb (13.0-17.5) gm/dL Hct (39.0-53.0) % Lymphocytes # (1.0-4.8) k/uL PT 32.5 H (9.0-12.0) sec INR 3.3 H (<1.2) APTT 48.4 H (22.0-30.0) sec Uric Acid (3.5-8.5) mg/dL Synovial Crystals (None Seen) Microbiology - Last 24 Hours (Table) 02/27/20 10:52 Blood Culture - Preliminary Blood No Growth after 24 hours 02/27/20 13:30 Gram Stain - Preliminary Knee - Left Body Fluid Culture - Preliminary Comments: Ankle/foot x-ray report reviewed Venous US: report reviewed Assessment and Plan (1) DVT (deep venous thrombosis) Narrative/Plan: Prior history as noted in the HPI. The patient had history of DVTs in the right and left lower extremity the and was on chronic anticoagulation since. He was found to have DVT again in the right leg, in the femoral vein in 2012. It was not clear on imaging if this was definitely a new clot. However as the patient was having symptoms it was felt reasonable to conclude that it was. As the INR was therapeutic at that time, it was felt reasonable to treat this as anticoagulation failure and switch him to xarelto. However the patient was unable to afford the xarelto after a few months and switch back to warfarin. I was not aware of this, as the patient did not follow-up in the office after 03/17. In 2012 he did not have imaging of the left lower extremity. We have no james rds or images of his Dopplers from the . The patient is now presenting with left lower extremity symptoms, but Doppler showing mid femoral nonocclusive clot. Again it is not possible to define the age exactly. To complicate the situation further the patient also appears to have had an intercurrent gout attack (clinically, and by fluid analysis which confirms urate crystals). However the patient is quite definitive that his initial symptoms were typical of his gout, but resolved. The symptoms that he developed subsequently bleeding him to come to the hospital for definitely different from his usual without symptoms. While this is not definitive, it raises the possibility that the patient did have new symptoms related to the clot, which therefore indicates that he could have new clot. As stated we have no prior Dopplers to compare. As a new clot cannot be ruled out, this could indicate a failure of anticoagulation. In any case we have recommended that the patient switched to xarelto in 2012. Therefore it would be reasonable to revert back to the same recommendations. This was discussed in detail with the admitting service were in agreement. And will continue on IV heparin or Lovenox while inpatient. We will check for coverage for one of the NOACs. If the patient is being anticoagulated with heparin or Lovenox, then warfarin effect needs to be reversed to reduce risk of bleeding. - Check Dopplers of the contralateral side for new baseline - Check a CTA for baseline Current Visit: Yes Status: Acute Code(s): I82.409 - ACUTE EMBOLISM AND THOMBOS UNSP DEEP VN UNSP LOWER EXTREMITY SNOMED Code(s): 441643714 (2) Gout attack Narrative/Plan: The patient does appear to have had had an acute gout attack in the left ankle and foot. It is not clear if this is related to his DVT (an acute attack could be a risk factor for recurrent/progressive thrombosis). As noted, the patient notes improvement of his typical gout related symptoms. Defer to the admitting service and orthopedic surgery for continued management Current Visit: Yes Status: Acute Code(s): M10.9 - GOUT, UNSPECIFIED SNOMED Code(s): 871192434 Plan: Defer to the admitting service for management of his other medical problems
[2020-02-28] MEDS ORDERED: PHYTONADIONE ORAL 5 MG/5 ML ORAL.SYRG PO STA (16:26)
[2020-02-28 16:34] LABS: Glucose,Whole Blood 142 mg/dL (75-99)
--- NOTE | 2020-02-28 20:05 | PN ---
PROGRESS NOTE DATE OF SERVICE: 02/28/2020 This 84-year-old gentleman admitted with left ankle arthropathy had swelling and ankle effusion. Patient had paracentesis. The fluid was positive for intracellular monosodium urate crystals suggestive of acute gouty arthritis. The patient also had acute DVT of the left leg, which was evaluated by Dr. Vargas at length. I had a detailed discussion with Dr. Vargas this morning. The patient had a previous history of DVT on both sides and, because of coverage, the patient is on Coumadin, but the patient was apparently noncompliant with that. Currently Dr. Vargas recommends Eliquis if there is coverage available. The patient is on currently on high-dose IV heparin for DVT. Coumadin failure is also being considered. Past medical history REVIEW OF SYSTEMS: CARDIOVASCULAR SYSTEM: No angina, palpitations. RESPIRATORY SYSTEM: As mentioned earlier. GI: As mentioned earlier. : No dysuria or retention. NERVOUS SYSTEM: No numbness, weakness. CURRENT MEDICATIONS: Reviewed. They include: 1. Atkinson 5 mg. 2. Xanax. 3. Lipitor. 4. Colcrys. 5. Aricept. 6. Vitamin D2. 7. Heparin. 8. Dilaudid. 9. Glucophage. 10.Protonix. 11.Actos. 12.Vancomycin. Doses are reviewed. PHYSICAL EXAMINATION: Patient is alert and oriented x3. Pulse 61, blood pressure 146/83, respiration 17, temperature 97.5, pulse ox 93% on room air. HEENT: Conjunctivae normal. NECK: No jugular venous distention. CARDIOVASCULAR SYSTEM: S1, S2 muffled. RESPIRATORY SYSTEM: Breath sounds diminished at the bases. A few scattered rhonchi and crackles. ABDOMEN: Soft, obese, non-tender. LEGS: No edema. No swelling. NERVOUS SYSTEM: No focal deficit. LABS: WBC 8.3, hemoglobin 12.2, INR 3.3, and APTT 48.4. ASSESSMENT: 1. Acute left ankle arthropathy with swelling and ankle effusion; acute gouty arthritis, status post arthrocentesis. 2. Acute deep venous thrombosis of the left leg and left thigh in superficial femoral system. 3. Coumadin failure possibly. 4. Increased creatinine with chronic kidney disease, stage III. 5. Elevated plasma lactic acid. 6. Increased CRP. 7. Anemia, normocytic anemia of chronic disease. 8. Coumadin monitoring. 9. Change in mental status; acute delirium. 10.History of coronary artery disease. 11.History of deep venous thrombosis. 12.History of deafness. 13.Hyperlipidemia. 14.History of degenerative joint disease. 15.Remote history of nicotine dependence. 16.Obesity with a body mass index of 37.7. 17.FULL CODE. RECOMMENDATIONS AND DISCUSSION: In this 84-year-old gentleman who presented with multiple complex medical issues, as mentioned earlier, we will continue to monitor, continue high-dose IV heparin and otherwise transition to Eliquis once it is available. Dr. Short has seen the patient and recommended continuing current medications, PT/OT evaluation, possible ECF rehab, gait training. The patient is on a small dose of IV steroids at this time. Will continue the same along with the colchicine for another 24 hours, and then further recommendations to follow. Prognosis guarded because of multiple complex medical issues. MMODL / IJN: [id number] /
[2020-02-28 20:26] LABS: Glucose,Whole Blood 170 mg/dL (75-99)
--- NOTE | 2020-02-28 20:40 | US ---
EXAMINATION TYPE: US venous doppler duplex LE RT DATE OF EXAM: 02/28/2020 8:24 PM COMPARISON: US CLINICAL HISTORY: DVT RLE. DVT LLE. Hx DVT in left lower extremity. Rule out DVT in right lower extre mity. Hx bilateral knee surgeries. SIDE PERFORMED: Right TECHNIQUE: The lower extremity deep venous system is examined utilizing real time linear array sonog angelo with graded compression, doppler sonography and color-flow sonography. VESSELS IMAGED: External Iliac Vein (EIV) Common Femoral Vein Deep Femoral Vein Greater Saphenous Vein * Femoral Vein Popliteal Vein Small Saphenous Vein * Proximal Calf Veins (* superficial vessels) Right Leg: Duplicate femoral vein seen. Right popliteal vein does not appear to compress completely. Color flow is seen within the popliteal vein. Possible non-occlusive thrombus within the popliteal v ein. Limited study due to edema. IMPRESSION: There is evidence of some chronic deep vein thrombosis in the right leg popliteal vein. No evidence of acute deep vein thrombosis.
[2020-02-28] MEDS: ATORVASTATIN 20 MG TAB PO SCH (22:00)
[2020-02-28] MEDS: DONEPEZIL 10 MG TAB PO SCH (22:00)
[2020-02-29] MEDS: HEPARIN SOD,PORK IN 0.45% NACL 25,000 UNIT in 0.45% NACL 1 250ML.BAG IV SCH ×2 (01:26→06:56)
[2020-02-29] MEDS: SODIUM CHLORIDE 0.9% 1,000 ML IV SCH ×2 (05:54→13:41)
[2020-02-29] MEDS: methylPREDNISolone SOD SUCCI 40 MG/ML 1 ML VIAL IV SCH ×2 (05:56→12:05)
[2020-02-29 06:18] LABS: Basophils % (A) 0 %; Eosinophils % (A) 0 %; HCT 36.7 % (39.0-53.0); HGB 11.5 gm/dL (13.0-17.5); Hypochromasia Slight; Lymphocytes # (A) 0.6 k/uL (1.0-4.8); Lymphocytes % (A) 7 %; MCHC 31.3 g/dL (31.0-37.0); MCV 95.8 fL (80.0-100.0); Mean Platelet Volume 8.4; Monocytes # (A) 0.4 k/uL (0-1.0); Monocytes % (A) 4 %; Neutrophils # (A) 8.4 k/uL (1.3-7.7); Neutrophils % (A) 89 %; Platelet Count 187 k/uL (150-450); RBC 3.83 m/uL (4.30-5.90); RDW 14.1 % (11.5-15.5); WBC 9.5 k/uL (3.8-10.6)
[2020-02-29 06:27] LABS: Albumin 3.7 g/dL (3.5-5.0); Calcium 8.4 mg/dL (8.4-10.2); Potassium 4.2 mmol/L (3.5-5.1); Total Bilirubin 0.3 mg/dL (0.2-1.3); Total Protein 7.2 g/dL (6.3-8.2)
[2020-02-29 06:46] LABS: Prothrombin Time 19.7 sec (9.0-12.0)
[2020-02-29 06:47] LABS: Glucose,Whole Blood 162 mg/dL (75-99)
[2020-02-29 06:52] LABS: Partial Thromboplastin Time 136.8 sec (22.0-30.0)
[2020-02-29] MEDS: VANCOMYCIN 2,000 MG in SODIUM CHLORIDE 0.9% 500 ML 500 ML IVPB SCH (07:09)
[2020-02-29] MEDS: FUROSEMIDE 40 MG TAB PO SCH (07:10)
[2020-02-29] MEDS: PANTOPRAZOLE 40 MG TABLET PO SCH (07:10)
[2020-02-29] MEDS: PIOGLITAZONE 15 MG TAB PO SCH (07:10)
[2020-02-29] MEDS: POTASSIUM CHLORIDE ER 20 MEQ TAB.ER PO SCH (07:10)
[2020-02-29] MEDS: metFORMIN 500 MG TAB PO SCH (07:10)
[2020-02-29] MEDS: COLCHICINE 0.6 MG EACH PO SCH (07:10)
[2020-02-29 07:26] VITALS: BP 138/78; PULSE 62; RESP 17; TEMP 97.6
[2020-02-29 11:40] LABS: Glucose,Whole Blood 205 mg/dL (75-99)
[2020-02-29] MEDS ORDERED: APIXABAN 5 MG TAB PO SCH (13:15)
--- NOTE | 2020-03-01 10:17 | P.DS ---
Providers Date of admission: 02/27/20 17:07 Expected date of discharge: 02/29/20 Attending physician: Leighann Sánchez Consults: 02/27/20 13:40 Consult Physician Stat Consulting Provider: Ever Short Consult Reason/Comments: r/o septic ankle Do you want consulting provider notified?: Already Contacted 02/27/20 18:21 Consult Physician Routine Consulting Provider: Mateo Vargas Consult Reason/Comments: dvt, coumadin failure Do you want consulting provider notified?: Yes Primary care physician: Nathan Nayakandrew [facility] Course: Final diagnosis Acute left ankle arthroplasty with swelling and ankle effusion; acute cardio arthritis, status post arthrocentesis Acute deep vein thrombosis of the left leg and left thigh and superficial femoral system Possible Coumadin failure Increased creatinine with chronic kidney disease, stage III Elevated plasma lactic acid, improved Increased CRP Anemia, normocytic anemia of chronic disease Coumadin monitoring Change in mental status; acute delirium History of coronary artery disease history of deep vein thrombosis history of deafness Hyperlipidemia History of degenerative joint disease Remote history of nicotine dependence Obesity with a body mass index of 37.7 Full code Discharge disposition Patient is being discharged in a stable condition with guarded prognosis to home and will follow-up with Dr. Jacobson in the outpatient setting upon discharge. Patient was initiated on Eliquis and will continue in the outpatient setting. Patient will also continue on Colchicine 0.6 mg daily along with a prednisone taper until follow-up with primary care provider. Total time taken is 35 minutes. History of present illness This is a 84-year-old male who was recently admitted with swelling of the left ankle in an ankle effusion and had an aspiration and was being closely monitored. Patient was also found to have a DVT of the left leg and right popliteal vein. Patient was initiated on IV heparin drip. Patient was originally on Coumadin as the cost of Xarelto was too much. Hematology evaluated the patient recommending other anticoagulation if affordable. Patient will be started on Eliquis. The ankle aspiration was noted to have monosodium urate crystals suggestive of acute gouty arthritis and patient was initiated on colchicine and prednisone with much improvement of the ankle swelling. Patient is up and walking today with no difficulties. Currently no reports of chest pain, shortness of breath, or palpitations. Patient is afebrile. No reports of nausea or vomiting and patient is tolerating diet. Patient will be discharged today. On exam vital signs are stable. Temp is 97.6F, pulse is 62, respirations are 17, blood pressure is 138/78, oxygen saturation is 95% on room air. Cardio S1, S2 are muffled. Respiratory system shows diminished breath sounds at the bases with no wheezing or rhonchi noted. Abdomen is soft, obese, and nontender. Nervous system shows no focal deficits. Please refer to medication reconciliation sheet for a list of medications. Patient Condition at Discharge: Stable Plan - Discharge Summary Discharge Rx Participant: Yes New Discharge Prescriptions: New Apixaban [Eliquis Starter Pack (for VTE)] 0 mg PO DIRECTED 30 Days #1 pack Colchicine [Colcrys] 0.6 mg PO DAILY #14 each predniSONE 10 mg PO DIRECTED #30 tab Continue Simvastatin [Zocor] 40 mg PO HS Ergocalciferol [Vitamin D2 (DRISDOL)] 50,000 unit PO FR metFORMIN HCL 1,000 mg PO BID #60 tab Furosemide [Lasix] 40 mg PO DAILY Donepezil [Aricept] 10 mg PO HS Potassium Chloride ER [K-Dur 20] 20 meq PO DAILY Pioglitazone [Actos] 15 mg PO DAILY Discontinued Warfarin [Coumadin] 2.5 mg PO SUTH Warfarin [Coumadin] 5 mg PO MOTUWEFRSA Discharge Medication List Simvastatin [Zocor] 40 mg PO HS 07/26/16 [History] Ergocalciferol [Vitamin D2 (DRISDOL)] 50,000 unit PO FR 09/14/16 [History] metFORMIN HCL 1,000 mg PO BID #60 tab 09/15/16 [Rx] Donepezil [Aricept] 10 mg PO HS 02/27/20 [History] Furosemide [Lasix] 40 mg PO DAILY 02/27/20 [History] Pioglitazone [Actos] 15 mg PO DAILY 02/27/20 [History] Potassium Chloride ER [K-Dur 20] 20 meq PO DAILY 02/27/20 [History] Apixaban [Eliquis Starter Pack (for VTE)] 0 mg PO DIRECTED 30 Days #1 pack 02/29/20 [Rx] Colchicine [Colcrys] 0.6 mg PO DAILY #14 each 02/29/20 [Rx] predniSONE 10 mg PO DIRECTED #30 tab 02/29/20 [Rx] Follow up Appointment(s)/Referral(s): Jeffry Jacobson MD [Primary Care Provider] - 03/02/20 11:40 am Ambulatory/Diagnostic Orders: Basic Metabolic Panel [LAB.AMB] Time Frame: 2 Days, Location: None Selected Patient Instructions/Handouts: Deep Vein Thrombosis (DC) Activity/Diet/Wound Care/Special Instructions: First month of Eliquis can be picked up tomorrow morning at [facility]. First letty will be free then $47/month. Activity Limited until follow-up Follow-up with primary care provider in the outpatient setting Continue current diet Continue with colchicine 0.6 mg daily until follow-up with primary care provider Continue with the prednisone taper Discharge Disposition: HOME SELF-CARE
[2020-03-02] MEDS ORDERED: ERGOCALCIFEROL 50,000 UNIT CAP PO SCH (09:00)
== END 2020-02-29 14:23 | disposition home or self-care (01) | DRG 300 ==
LOC: EC 10:13 → 4SSUR 17:07
PROVIDERS: ADMIT Hospitalist; ATTEND Hospitalist
PROC: 0S9G3ZZ Drainage of Left Ankle Joint, Percutaneous Approach (ICD-10-PCS; principal; 2020-02-27)
DX: I82.412 Acute embolism and thrombosis of left femoral vein (principal); E87.2 Acidosis; M10.9 Gout, unspecified; D63.8 Anemia in other chronic diseases classified elsewhere; E66.9 Obesity, unspecified; E78.5 Hyperlipidemia, unspecified; H91.90 Unspecified hearing loss, unspecified ear; I25.10 Atherosclerotic heart disease of native coronary artery without angina pectoris; M19.90 Unspecified osteoarthritis, unspecified site; N18.3 Chronic kidney disease, stage 3 (moderate); Z68.37 Body mass index [BMI] 37.0-37.9, adult; Z11.59 Encounter for screening for other viral diseases; M25.472 Effusion, left ankle; Z79.01 Long term (current) use of anticoagulants; Z79.84 Long term (current) use of oral hypoglycemic drugs; Z79.899 Other long term (current) drug therapy; Z86.718 Personal history of other venous thrombosis and embolism; R41.0 Disorientation, unspecified; Z96.611 Presence of right artificial shoulder joint; Z96.652 Presence of left artificial knee joint; Z87.891 Personal history of nicotine dependence; T45.516A Underdosing of anticoagulants, initial encounter; Z91.128 Patient's intentional underdosing of medication regimen for other reason; Z88.0 Allergy status to penicillin
CPT/HCPCS: 36415; 80053; 81003; 83605; 84550; 85025; 85610; 85652; 85730; 86140; 87040; 87070; 87205; 87635; 89050; 89060; 96365; 96366; 96367; 96376; 99285

== ENCOUNTER → 2020-10-08 | Outpatient (CLI) | payer MEDICARE, BC ==
--- NOTE | 2020-10-08 13:16 | US ---
EXAMINATION TYPE: US venous doppler duplex LE BI DATE OF EXAM: 10/08/2020 12:36 PM COMPARISON: 02/27/2020 and 02/28/2020 CLINICAL HISTORY: 85-year-old male I82.5Z9 DEEP VEIN THROMBOSIS. Edema, h/o DVT SIDE PERFORMED: Bilateral TECHNIQUE: The lower extremity deep venous system is examined utilizing real time linear array sonog angelo with graded compression, doppler sonography and color-flow sonography. FINDINGS: VESSELS IMAGED: Common Femoral Vein Deep Femoral Vein Greater Saphenous Vein * Femoral Vein Popliteal Vein Small Saphenous Vein * Proximal Calf Veins (* superficial vessels) Right Leg: No evidence of acute DVT. Probable chronic non-occluding thrombus from mid Fem Vein to lo wer Popliteal vein Left Leg: No evidence of acute DVT. Probable chronic non-occluding thrombus from mid Fem Vein to low er Popliteal vein IMPRESSION: The bilateral lower extremities show nonocclusive, probable chronic DVT extending from the mid femora l vein down into the lower popliteal vein on both sides. This is progressed from the patient's 020 and 02/28/2020 exams.
== END | disposition home or self-care (01) ==
LOC: RADUSWWP 12:06
PROVIDERS: ATTEND Internal Medicine Hematology & Oncology
DX: I82.5Z9 Chronic embolism and thrombosis of unspecified deep veins of unspecified distal lower extremity (principal); Z88.0 Allergy status to penicillin
CPT/HCPCS: 93970

== ENCOUNTER → 2021-01-11 | Outpatient (CLI) | payer MEDICARE, BC | END | disposition home or self-care (01) | LOC: RADCTMAIN 07:36 | PROVIDERS: ATTEND Internal Medicine Interventional Cardiology | DX: I35.1 Nonrheumatic aortic (valve) insufficiency (principal) | CPT/HCPCS: 82565; 84520 ==

== ENCOUNTER → 2021-01-17 | Outpatient (CLI) | payer MEDICARE, BC ==
--- NOTE | 2021-01-17 12:20 | CT ---
EXAMINATION TYPE: CT TAVR Planning DATE OF EXAM: 01/17/2021 HISTORY: Nonrheumatic aortic insufficiency CT DLP: 3091.90 mGycm Automated Exposure Control for Dose Reduction was Utilized. CONTRAST: CTA scan of the chest, abdomen and pelvis is performed with IV Contrast, patient injected with 125 ml mL of Isovue 370. COMPARISON: CT February 16, 2013 TECHNIQUE: Helical imaging obtained through the chest, abdomen and pelvis during arterial phase ilan paresh administration of radiographic contrast intravenously. FINDINGS: See report from [email or web address] regarding preprocedural planning CHEST: Lower Neck and Thyroid: No significant findings Lungs: Motion artifact degradation limits evaluation for subcentimeter nodules. Low lung volumes with mild to moderate linear atelectasis and/or scarring in the bases. Central Airway: No significant findings Pleura: No significant findings Pulmonary Arteries: No significant findings Heart and Pericardium: Moderate three-vessel coronary artery calcification on the current study. Mild calcification at level of mitral valve. There is more severe calcification and thickening at level o f the aortic valve leaflets. Lymph Nodes: No significant findings Mediastinum & Esophagus: No significant findings ABDOMEN/PELVIS: Please note arterial phase of the imaging limits detailed evaluation of the solid abdominal organs. Liver: No significant findings Spleen: No significant findings Kidneys: No significant findings Adrenal Glands: No significant findings Pancreas: Mild generalized fat replaced atrophy redemonstrated. Gallbladder: No significant findings Bowel and Mesentery: Prominent diverticular disease in the sigmoid colon redemonstrated. Lymph Nodes: No significant findings Urinary Bladder: Poorly distended and thus suboptimally evaluated on current study. Pelvic Organs: No significant findings Other: Small fat-containing left inguinal hernia redemonstrated. Mild calcified plaque of the aorta e xtends into branch vessels Osseous structures: Multilevel spurring in the spine. Ossific fusion L5-S1 level. Grade 1 anterolisth esis L4 on L5. Multilevel facet arthropathy in the mid to lower lumbar spine. Other Lines/Tubes/Devices/Hardware: None IMPRESSION: No significant findings present to prevent scheduled surgery.
== END | disposition home or self-care (01) ==
LOC: RADCTMAIN 10:35
PROVIDERS: ATTEND Internal Medicine Interventional Cardiology
DX: I35.1 Nonrheumatic aortic (valve) insufficiency (principal)
CPT/HCPCS: 94150; 82565; 84520; 71275; 74174; 96360; 96361; Q9967

== ENCOUNTER 2022-11-05 09:41 | Day surgery (SDC) | payer MEDICARE, BC ==
--- NOTE | 2022-11-04 19:24 | P.HPOR ---
History of Present Illness H&P Date: 11/04/22 Chief Complaint: Right carpal tunnel syndrome Subjective: This is a 87 year old male that presents today for initial evaluation regarding a year history of progressively worsening right and left hand paresthesias in the thumb, index, middle and ring fingers. He states his right hand is worse than the left and his symptoms are worse at night. They have tried bracing at night and he had a steroid injection with temporary relief in the past. They deny any inciting event or neck pain. Physical Examination: RUE: AIN/PIN/Radial/Ulnar/Median motor intact. Radial/Ulnar/Median SILT. 2+/4 Radial/Ulnar pulses palpated. 5/5 APB, 5/5 FDI. Negative Finkelsteins, negative CMC grind, positive Durkan's compression. LUE: AIN/PIN/Radial/Ulnar/Median motor intact. Radial/Ulnar/Median SILT. 2+/4 Radial/Ulnar pulses palpated. 5/5 APB, 5/5 FDI. Negative Finkelsteins, negative CMC grind, positive Durkan's compression. Imaging: X-rays of the left hand 3v taken in office today demonstarte advanced degenerative changes at the thumb CMC, index and middle finger MCP joints and DRUJ. X-rays of the right hand 3v taken in office today demonstarte advanced degenerative changes at the thumb CMC, index and middle finger MCP joints. Impression: 1.) Right carpal tunnel syndrome 2.) Left carpal tunnel syndrome Plan: Diagnosis and treatment options were discussed with the patient. The patient has failed conservative treatment and his symptoms are effecting his sleep and daily activities. He would like to pursue a right endoscopic vs open carpal tunnel release. Risks and benefits of surgery including bleeding, infection, damage to surrounding tissue, need for further surgery, possible need to convert to open procedure, residual numbness were discussed and the patient wished to go forward with surgery. -Santos Brumfield DO Orthopedic Hand/Upper Extremity Surgeon Past Medical History Past Medical History: Coronary Artery Disease (CAD), Deep Vein Thrombosis (DVT), Hearing Disorder / Deafness, Hyperlipidemia, Osteoarthritis (OA) Additional Past Medical History / Comment(s): DVT X3-1989,1992,2012", gout History of Any Multi-Drug Resistant Organisms: None Reported Past Surgical History: Cardiac Valve Replacement, Joint Replacement, Orthopedic Surgery Additional Past Surgical History / Comment(s): RT SHOULDER AND LT KNEE REPLACEMENT. RT ROTATOR CUFF REPAIR, COLONOSCOPY Past Anesthesia/Blood Transfusion Reactions: No Reported Reaction Smoking Status: Former smoker - Past Family History Father History Unknown: Yes Additional Family Medical History / Comment(s): Lived until 88, was in a foster home. Medications and Allergies Home Medications Medication Instructions Recorded Confirmed Type Simvastatin [Zocor] 40 mg PO HS 07/26/16 10/31/22 History Ergocalciferol [Vitamin D2 50,000 unit PO FR 09/14/16 10/31/22 History (DRISDOL)] metFORMIN HCL [Glucophage] 1,000 mg PO BID #60 tab 09/15/16 10/31/22 Rx Donepezil [Aricept] 10 mg PO HS 02/27/20 10/31/22 History Furosemide [Lasix] 40 mg PO DAILY 02/27/20 10/31/22 History Potassium Chloride ER [K-Dur 20] 20 meq PO DAILY 02/27/20 10/31/22 History Warfarin [Coumadin] 2.5 mg PO TUSA 10/31/22 10/31/22 History Warfarin [Coumadin] 5 mg PO SUMOWETHFR 10/31/22 10/31/22 History Allergies Allergy/AdvReac Type Severity Reaction Status Date / Time Penicillins Allergy Rash/Hives Verified 10/31/22 11:24 Sulfa (Sulfonamide Allergy Rash/Hives Verified 10/31/22 11:24 Antibiotics) Physical Examination Osteopathic Statement: *. No significant issues noted on an osteopathic structural exam other than those noted in the History and Physical/Consult.
[~2022-11-05 09:41] MED LIST: Pre Op ABX Message 1 EACH MISC MISCELLANE ONE
[2022-11-05] MEDS ORDERED: ONDANSETRON 4 MG/2 ML VIAL IVP ONE (09:58)
[2022-11-05] MEDS ORDERED: HYDROmorphone 0.5 MG/0.5 ML SYRINGE IVP PRN (09:58)
[2022-11-05] MEDS ORDERED: MIDAZOLAM 2 MG/2 ML VIAL IV PRN (09:58)
[2022-11-05] MEDS ORDERED: DEXAMETHASONE SOD PHOSPHATE 4 MG/ML 1 ML VIAL IV ONE (09:58)
[2022-11-05] MEDS ORDERED: LACTATED RINGERS 1,000 ML IV SCH (09:58)
[2022-11-05 10:35] VITALS: TEMP 98.2
[2022-11-05] MEDS ORDERED: LIDOCAINE 1% (10MG/ML) FOR IV START INTRADERMA ONE (10:42)
[2022-11-05 10:49] LABS: Glucose,Whole Blood 107 mg/dL (70-110)
[2022-11-05] MEDS ORDERED: fentaNYL (PF) 50 MCG/ML 2 ML AMP ONE (11:08)
[2022-11-05] MEDS ORDERED: LIDOCAINE 2% INJ 20 MG/ML (2 ML VIAL) ONE (11:08)
[2022-11-05] MEDS ORDERED: PROPOFOL 10 MG/ML 20 ML VIAL IV ONE (11:08)
[2022-11-05] MEDS ORDERED: KETAMINE 10 MG/ML 20 ML VIAL ONE (11:08)
[2022-11-05] MEDS ORDERED: LIDOCAINE 1% INJ 10MG/ML (10 ML MDV) SQ ONE (11:25)
[2022-11-05] MEDS ORDERED: BUPIVACAINE (PF) 0.5% 30 ML VIAL SQ ONE (11:25)
--- NOTE | 2022-11-05 11:51 | P.OP ---
Date of Procedure: 11/05/22 Preoperative Diagnosis: Right carpal tunnel syndrome Postoperative Diagnosis: Right carpal tunnel syndrome Procedure(s) Performed: Right endoscopic carpal tunnel release Anesthesia: MAC Surgeon: Santos Brumfield Estimated Blood Loss (ml): 0 Pathology: none sent Condition: stable Disposition: PACU Description of Procedure: This is a 87 year old male who presents today for a right endoscopic carpal tunnel release after having failed conservative treatment in the past. Risks and benefits of surgery were discussed with the patient including bleeding, damage to surrounding tissue, infection, need to convert to open procedure, need for further surgery as well as risks of anesthesia including pulmonary embolism and even and the patient wished to proceed with surgical intervention. The patients was seen in the pre-operative area by myself. Consent and H&P were completed and updated. The correct extremity was marked in the pre-operative area by myself and all other questions were answered. Operative Narrative: The patient was brought to the operating room by the department of anesthesia. They remained on the portable stretcher and a rolling hand table was brought to the side of the operative extremity. Pre-operative time out was performed indicating the correct patient, procedure and laterality. All in the room agreed. The patient was then drifted off to sleep by the department of anesthesia. MAC anesthesia was utilized and a 50:50 mixture of 1% Lidocaine and 0.5% bupivacaine was injected into the subcutaneous tissues of the palmar skin, 8ccs total. A nonsterile tourniquet was then applied to the operative extremity and the right upper extremity was then prepped and draped in normal sterile fashion. The operative extremity was the exsanguinated with an esmarch bandage and the tourniquet was inflated to 250mmHg. 15 blade scalpel was utilized to make a transverse incision on the palmar skin just ulnar to the palmaris longus tendon at the level of the distal wrist crease. Ragnell retractor was then placed radially and blunt dissection was performed to reveal the distal forearm fascia. This was lifted with fine Maulik pick ups and Littler tenotomy scissors were then used to open the forearm fascia transversely and a double skin hook was then placed. Hamate finder was placed into the carpal tunnel and then sequential sized dilators were inserted followed by the synovial elevator to separate the flexor tenosynovium from the undersurface of the transverse carpal ligament and a washboard texture was felt. The MicroAire endoscopic carpal tunnel release system gun was the then inserted into the carpal tunnel hugging the deep portion of the transverse carpal ligament in line with the base of the ring finger. Transverse fibers of the ligament were directly visualized. Pressure was applied on the palm to reveal the distal extent of the transverse carpal ligament. The blade was then deployed and the distal half of the transverse carpal ligament was released. The scope was then brought distal again and remaining transverse fibers were incised with the blade. The proximal half of the transverse carpal ligament was then divided and again the scope was advanced distal and remaining transverse fibers were incised with the blade. The radial and ulnar leaflets were directly visualized and mobile consistent with complete release. Tenotomy scissors were then utilized to release the remaining distal forearm fascia under direct visualization taking care to preserve the palmar cutaneous branch of the median nerve. Skin closure was performed with interrupted 4-0 Monocryl suture followed by Mastisol and steri strips. Sterile dressing was applied consisting of adaptic, 4x4s, Webril, and an joe bandage. Tourniquet was let down and the hand immediately was well perfused. The patient was then woken by the department of anesthesia and transferred to PACU in stable condition. Santos Brumfield D.O. Orthopedic Hand/Upper Extremity Surgeon
[2022-11-05 11:55] VITALS: BP 141/64; PULSE 58; RESP 18
== END 2022-11-05 12:35 | disposition home or self-care (01) ==
LOC: OR 09:41
PROVIDERS: ATTEND Orthopaedic Surgery Hand Surgery
DX: G56.03 Carpal tunnel syndrome, bilateral upper limbs (principal); I25.10 Atherosclerotic heart disease of native coronary artery without angina pectoris; E78.5 Hyperlipidemia, unspecified; M19.90 Unspecified osteoarthritis, unspecified site; Z95.2 Presence of prosthetic heart valve; Z87.891 Personal history of nicotine dependence; Z79.84 Long term (current) use of oral hypoglycemic drugs; Z88.0 Allergy status to penicillin; Z88.2 Allergy status to sulfonamides; Z96.652 Presence of left artificial knee joint; Z79.899 Other long term (current) drug therapy
CPT/HCPCS: 29848; J1100; J2405; J3010; J2001 ×2; J2704

== ENCOUNTER 2023-01-07 06:41 | Day surgery (SDC) | payer MEDICARE, BC ==
--- NOTE | 2023-01-05 10:19 | P.HPOR ---
History of Present Illness H&P Date: 01/05/23 Chief Complaint: Left carpal tunnel syndrome Subjective: This is a 87 year old male that presents today for a post-operative visit after undergoing right endoscopic carpal tunnel release on 11/05/22. He has notice good relief in his symptoms and has had no issues. He states the left side continues to bother him and wakes him from sleep at night and he wishes to schedule a left carpal tunnel release. Physical Examination: RUE: AIN/PIN/Radial/Ulnar/Median motor intact. Radial/Ulnar/Median SILT. 2+/4 Radial/Ulnar pulses palpated. Volar incision well healed. LUE: AIN/PIN/Radial/Ulnar/Median motor intact. Radial/Ulnar/Median SILT. 2+/4 Radial/Ulnar pulses palpated. Positive Durkan's compression. Impression: 1.) S/P Right endoscopic carpal tunnel release 2.) Left carpal tunnel syndrome. Plan: Diagnosis and treatment options were discussed with the patient. He may continue to use the hands as tolerated and left endoscopic vs open carpal tunnel release is scheduled in the near future. Risks and benefits of surgery including bleeding, infection, damage to surrounding tissue, need for further surgery, possible need to convert to open procedure, residual numbness were discussed and the patient wished to go forward with surgery. Clearance will be used from prior and recent surgery 2 weeks ago. The patient is agreeable with this plan. -Santos Brumfield DO Orthopedic Hand/Upper Extremity Surgeon Past Medical History Past Medical History: Coronary Artery Disease (CAD), Deep Vein Thrombosis (DVT), Hearing Disorder / Deafness, Hyperlipidemia, Osteoarthritis (OA) Additional Past Medical History / Comment(s): DVT X3-1989,1992,2012", gout History of Any Multi-Drug Resistant Organisms: None Reported Past Surgical History: Cardiac Valve Replacement, Joint Replacement, Orthopedic Surgery Additional Past Surgical History / Comment(s): RT SHOULDER AND LT KNEE REPLACEMENT. RT ROTATOR CUFF REPAIR, COLONOSCOPY Past Anesthesia/Blood Transfusion Reactions: No Reported Reaction Smoking Status: Former smoker - Past Family History Father History Unknown: Yes Additional Family Medical History / Comment(s): Lived until 88, was in a foster home. Medications and Allergies Home Medications Medication Instructions Recorded Confirmed Type Simvastatin [Zocor] 40 mg PO HS 07/26/16 11/05/22 History Ergocalciferol [Vitamin D2 50,000 unit PO FR 09/14/16 11/05/22 History (DRISDOL)] metFORMIN HCL [Glucophage] 1,000 mg PO BID #60 tab 09/15/16 11/05/22 Rx Donepezil [Aricept] 10 mg PO HS 02/27/20 11/05/22 History Furosemide [Lasix] 40 mg PO DAILY 02/27/20 11/05/22 History Potassium Chloride ER [K-Dur 20] 20 meq PO DAILY 02/27/20 11/05/22 History Warfarin [Coumadin] 2.5 mg PO TUSA 10/31/22 11/05/22 History Warfarin [Coumadin] 5 mg PO SUMOWETHFR 10/31/22 11/05/22 History Allergies Allergy/AdvReac Type Severity Reaction Status Date / Time Penicillins Allergy Rash/Hives Verified 11/05/22 10:16 Sulfa (Sulfonamide Allergy Rash/Hives Verified 11/05/22 10:16 Antibiotics) Physical Examination Osteopathic Statement: *. No significant issues noted on an osteopathic structural exam other than those noted in the History and Physical/Consult.
[~2023-01-07 06:41] MED LIST changes: +LACTATED RINGERS 1,000 ML IV SCH; +LIDOCAINE 1% (10MG/ML) FOR IV START INTRADERMA PRN
[2023-01-07 07:28] LABS: Glucose,Whole Blood 107 mg/dL (70-110)
[2023-01-07 07:33] VITALS: TEMP 98
[2023-01-07] MEDS ORDERED: KETAMINE 10 MG/ML 20 ML VIAL ONE (07:49)
[2023-01-07] MEDS ORDERED: fentaNYL (PF) 50 MCG/ML 2 ML AMP ONE (07:49)
[2023-01-07] MEDS ORDERED: PROPOFOL 10 MG/ML 20 ML VIAL IV ONE (07:49)
[2023-01-07] MEDS ORDERED: LIDOCAINE 2% (PF) 20 MG/ML 10 ML AMP SQ ONE (07:57)
[2023-01-07] MEDS ORDERED: BUPIVACAINE (PF) 0.5% 30 ML VIAL SQ ONE (07:57)
[2023-01-07 08:50] VITALS: BP 154/68; PULSE 60; RESP 18
--- NOTE | 2023-01-07 09:03 | P.OP ---
Date of Procedure: 01/07/23 Preoperative Diagnosis: Left carpal tunnel syndrome Postoperative Diagnosis: Left carpal tunnel syndrome Procedure(s) Performed: Left endoscopic carpal tunnel release Anesthesia: MAC Surgeon: Santos Brumfield [employer] Representative #1: Bonifacio Cohen Estimated Blood Loss (ml): 0 Pathology: none sent Condition: stable Disposition: PACU Description of Procedure: This is a 87 year old male who presents today for a left endoscopic carpal tunnel release after having failed conservative treatment in the past. Risks and benefits of surgery were discussed with the patient including bleeding, damage to surrounding tissue, infection, need to convert to open procedure, need for further surgery as well as risks of anesthesia including pulmonary embolism and even and the patient wished to proceed with surgical intervention. The patients was seen in the pre-operative area by myself. Consent and H&P were completed and updated. The correct extremity was marked in the pre-operative area by myself and all other questions were answered. Operative Narrative: The patient was brought to the operating room by the department of anesthesia. They remained on the portable stretcher and a rolling hand table was brought to the side of the operative extremity. Pre-operative time out was performed indicating the correct patient, procedure and laterality. All in the room agreed. The patient was then drifted off to sleep by the department of anesthesia. MAC anesthesia was utilized and a 50:50 mixture of 1% Lidocaine and 0.5% bupivacaine was injected into the subcutaneous tissues of the palmar skin, 10ccs total. A nonsterile tourniquet was then applied to the operative extremity and the left upper extremity was then prepped and draped in normal sterile fashion. The operative extremity was the exsanguinated with an esmarch bandage and the tourniquet was inflated to 250mmHg. 15 blade scalpel was utilized to make a transverse incision on the palmar skin just ulnar to the palmaris longus tendon at the level of the distal wrist crease. Ragnell retractor was then placed radially and blunt dissection was performed to reveal the distal forearm fascia. This was lifted with fine Maulik pick ups and Littler tenotomy scissors were then used to open the forearm fascia transversely and a double skin hook was then placed. Hamate finder was placed into the carpal tunnel and then sequential sized dilators were inserted followed by the synovial elevator to separate the flexor tenosynovium from the undersurface of the transverse carpal ligament and a washboard texture was felt. The MicroAire endoscopic carpal tunnel release system gun was the then inserted into the carpal tunnel hugging the deep portion of the transverse carpal ligament in line with the base of the ring finger. Transverse fibers of the ligament were directly visualized. Pressure was applied on the palm to reveal the distal extent of the transverse carpal ligament. The blade was then deployed and the distal half of the transverse carpal ligament was released. The scope was then brought distal again and remaining transverse fibers were incised with the blade. The proximal half of the transverse carpal ligament was then divided and again the scope was advanced distal and remaining transverse fibers were incised with the blade. The radial and ulnar leaflets were directly visualized and mobile consistent with complete release. Tenotomy scissors were then utilized to release the remaining distal forearm fascia under direct visualization taking care to preserve the palmar cutaneous branch of the median nerve. Skin closure was performed with running 4-0 nylon suture. Sterile dressing was applied consisting of adaptic, 4x4s, Webril, and an joe bandage. Tourniquet was let down and the hand immediately was well perfused. The patient was then woken by the department of anesthesia and transferred to PACU in stable condition. Bonifacio MCNAMARA was present for the case in its entirety and assisted in major portions of the case and protection of vital neurovascular structures. Santos Brumfield D.O. Orthopedic Hand/Upper Extremity Surgeon
== END 2023-01-07 09:15 | disposition home or self-care (01) ==
LOC: OR 06:41
PROVIDERS: ATTEND Orthopaedic Surgery Hand Surgery
DX: G56.02 Carpal tunnel syndrome, left upper limb (principal); I25.10 Atherosclerotic heart disease of native coronary artery without angina pectoris; E78.5 Hyperlipidemia, unspecified; Z96.659 Presence of unspecified artificial knee joint; Z98.890 Other specified postprocedural states; Z87.891 Personal history of nicotine dependence; Z79.84 Long term (current) use of oral hypoglycemic drugs; Z79.899 Other long term (current) drug therapy
CPT/HCPCS: 29848; J2001; J3010; J2704